=== PATIENT | male | born 1980 | race American Indian/Alaskan Native ===

== ENCOUNTER 2019-05-16 08:02 | Day surgery (SDC) | payer BC ==
[2019-05-16] MEDS ORDERED: ceFAZolin 2 GM in NACL 0.9% 100 ML IV ONE ×2 (08:22→10:09)
--- NOTE | 2019-05-16 08:57 | Anesthesia Day of Surgery ---
Anesthesia Day of Surgery - Day of Surgery Patient Examined: Yes Patient H&P Reviewed: Yes Patient is NPO: Yes
[2019-05-16] MEDS ORDERED: LACTATED RINGERS 1,000 ML IV SCH (09:00)
[2019-05-16] MEDS ORDERED: ANCEF/STERILE WATER 2 GM/20 ML 2 GM/20 ML SYRINGE IV NR (09:00)
--- NOTE | 2019-05-16 09:02 | Anesthesia Consultation ---
Anesthesia Consult and Med Hx Date of service: 05/16/19 - Airway Anesthetic Teeth Evaluation: Good ROM Head & Neck: Adequate Mental/Hyoid Distance: Adequate Mallampati Class: Class I Intubation Access Assessment: Good - Pre-Operative Health Status ASA Pre-Surgery Classification: ASA2 Proposed Anesthetic Plan: General - Pulmonary Hx Smoking: Yes (2 CIGARS PER DAY (BLACK AND MILDS)) Hx Sleep Apnea: No (RAFAELA PRE SCREEN LOW RISK) - Cardiovascular System Hx Hypertension: No - Central Nervous System Hx Back Pain: Yes (FROM STONE) - Other Systems Hx Alcohol Use: Yes (BEER QD) Hx Substance Use: Yes (OCC MARIJUANA) Hx Cancer: No
[2019-05-16] MEDS ORDERED: VERSED IV NR (09:30)
[2019-05-16] MEDS ORDERED: ZOFRAN IV PRN (09:30)
[2019-05-16] MEDS ORDERED: MORPHINE IV NR (09:30)
[2019-05-16] MEDS ORDERED: SUBLIMAZE IV PRN (09:30)
[2019-05-16] MEDS ORDERED: TYLENOL PO NR (09:30)
[2019-05-16] MEDS ORDERED: SUBLIMAZE ONE (09:49)
[2019-05-16] MEDS ORDERED: XYLOCAINE MPF 2% ONE (09:49)
[2019-05-16] MEDS ORDERED: DIPRIVAN 10 MG/ML IV ONE (09:49)
[2019-05-16] MEDS ORDERED: DECADRON ONE (10:02)
[2019-05-16] MEDS ORDERED: ZOFRAN ONE (10:02)
[2019-05-16] MEDS ORDERED: TORADOL ONE (10:02)
[2019-05-16] MEDS ORDERED: ANCEF/STERILE WATER 2 GM/20 ML 2 GM/20 ML SYRINGE IV SCH (11:00)
--- NOTE | 2019-05-16 11:29 | Post Operative Note ---
Date of procedure: 05/16/19 Pre-op diagnosis: r esperanza stone Post-op diagnosis: same Findings: as aBOVE Procedure: R ESWL Anesthesia: GETA Surgeon: STEFANY JACKSON Estimated blood loss: none Pathology: none Condition: stable Disposition: PACU
--- NOTE | 2019-05-16 11:30 | Discharge Summary ---
Short Stay Discharge Plan Activity: other (NO STRAINING ) Weight Bearing Status: Full Weight Bearing Diet: low fat, low cholesterol, low salt Special Instructions: other (INC FLUIDS ) Follow up with: PRIMARY CAREMD [Primary Care Provider] - 7 Days JAME PASTRANA MD [Staff Physician] - 7 Days
--- NOTE | 2019-05-16 11:46 | Operative Report ---
PREOPERATIVE DIAGNOSIS: Right renal stone, flank pain. POSTOPERATIVE DIAGNOSIS: Right renal stone, flank pain. PROCEDURE: In situ right lithotripsy. SURGEON: Dr. Escobar. ANESTHESIA: General. FINDINGS: This is a gentleman with a prominent stone, right kidney, intermittent pain, now presents for treatment. All risks and implications discussed. DESCRIPTION OF PROCEDURE: The patient was brought to the operating room and placed on the operating room table. Following induction of anesthesia, he was placed in supine position, prepped and draped in usual sterile fashion. A stone was easily localized both the AP and oblique image. Shocks were begun at 1 kV, increased to maximum of 7 kV. We had good fragmentation of the stone. It even moved from the position, we had to follow it. The patient tolerated the procedure well and looked to be well fragmented, 2500 shocks were given. We did a renal pause. Maximum kV as mentioned was 7. The patient tolerated the procedure well and brought to recovery in stable condition. JOB# [id number] MARIELLA/ALICIA
[2019-05-16 12:42] VITALS: BP 141/99
--- NOTE | 2019-05-17 10:07 | Post Anesthesia Evaluation ---
- Post Anesthesia Evaluation Patient Participated: Yes Airway Patent: Yes Stable Respiratory Function: Yes Nausea/Vomiting: No Temp > 96.8F: Yes Pain Manageable: Yes Adequeate Hydration: Yes Anesthesia Complications: No Block Receding Appropriately: Not Applicable Patient on Ventilator: No
== END 2019-05-16 13:50 | disposition home or self-care (01) ==
LOC: OR 08:02
PROVIDERS: ATTEND Urology
DX: N20.0 Calculus of kidney (principal); F41.9 Anxiety disorder, unspecified; F17.210 Nicotine dependence, cigarettes, uncomplicated; Z98.890 Other specified postprocedural states; Z72.89 Other problems related to lifestyle; Z79.899 Other long term (current) drug therapy; Z98.52 Vasectomy status
CPT/HCPCS: 50590; J1100; J2250; J2405; J2704; J3010; J7120; J0690; J1885